=== PATIENT | female | born 1980 | race Caucasian/White ===

== ENCOUNTER → 2021-06-08 | Outpatient (CLI) | payer OTHER ==
--- NOTE | 2021-06-09 09:04 | Diagnostic Imaging Report ---
Indication: Right breast lump. No prior mammograms are available for comparison. This a baseline study. 2-D and 3-D bilateral screening mammography was performed with CAD. Both breast are heterogeneously dense, limiting the sensitivity of mammography. BB marker was placed at the area of palpable abnormality in the right breast. There is a rounded density in the retroareolar slightly medial right breast which may represent a cyst. No other masses are seen. No malignant-appearing microcalcifications are identified. IMPRESSION: Probable cyst in the retroareolar right breast. Further evaluation with ultrasound of this area is recommended. In addition, ultrasound of the area palpable abnormality in the right breast is recommended. This will be performed today. BI-RADS 0 ACR BI-RADS Category 0: Incomplete. (Needs additional imaging evaluation). Result letter will be mailed to the patient. Note: At least 10% of breast cancer is not imaged by mammography. Dictated by: Dictated on workstation # [id number]
--- NOTE | 2021-06-09 11:25 | Diagnostic Imaging Report ---
INDICATION: Palpable lump right breast. CORRELATION is made with diagnostic mammogram earlier same day. Sonographic interrogation of the area of palpable abnormality in the right periareolar region was performed. There are several cysts at this location likely accounting for the mammographic densities, as well. Largest cyst measures 2.4 x 1.4 x 2.2 cm at the 12 to 1 o'clock location 3 cm from the nipple. A second cyst measures 2.1 x 1.2 x 2.0 cm. A cyst at the 3:00 retroareolar region measures 2.4 1.8 x 2.5 cm. No solid masses are seen. In addition, the right axilla was evaluated due to right axillary pain. No underlying abnormality is detected. No solid or cystic mass is identified. IMPRESSION: BI-RADS Category 2 Multiple simple right breast cysts, as described, likely accounting for the palpable abnormalities. No solid masses or concerning findings are identified. ACR BI-RADS Category 2: Benign findings. Result letter will be mailed to the patient. Note: At least 10% of breast cancer is not imaged by mammography. Dictated by: Dictated on workstation # [id number]
== END ==
LOC: RAD 14:15
PROVIDERS: ATTEND Pediatrics
DX: N60.11 Diffuse cystic mastopathy of right breast (principal)
CPT/HCPCS: 76642; 77066; G0279; 77062